=== PATIENT | female | born 1960 | race Caucasian/White ===

== ENCOUNTER 2020-01-29 11:17 | Inpatient (IN) ==
[2020-01-30] MEDS: Topiramate 25 MG TABLET PO SCH ×3 (00:38→20:17)
[2020-01-30] MEDS: traZODone 50 MG TABLET PO SCH ×2 (00:38→20:16)
[2020-01-30] MEDS: QUEtiapine Fumarate 100 MG TABLET PO SCH ×2 (00:38→20:17)
[2020-01-30] MEDS: BuPROPion SR (12 HR) 150 MG TABLET PO SCH ×3 (00:38→16:47)
[2020-01-30 05:56] LABS: Basophils % 0.7 %; Eosinophils # 0.1 K/mcL (0.0-0.6); Eosinophils % 1.5 %; Hematocrit 32.5 % (35.3-44.9); Hemoglobin 10.8 g/dL (11.5-15.4); Immature Granulocytes % 1.8 % (0-4); Lymphocytes # 1.1 K/mcL (0.6-4.6); Lymphocytes % 23.7 %; Mean Corpuscular HGB Conc 33.2 g/dL (31.6-35.5); Mean Corpuscular Hemoglobin 32.7 pg (28.0-33.3); Mean Corpuscular Volume 98.5 fL (83.0-100.0); Mean Platelet Volume 9.2 fL (9.4-12.4); Monocytes # 0.6 K/mcL (0.0-1.3); Monocytes % 13.5 %; Neutrophils # 2.7 K/mcL (1.6-8.9); Platelet Count 105 K/mcL (140-400); Red Cell Distribution Width 12.7 % (11.5-14.5); Segmented Neutrophils % 58.8 %; White Blood Count 4.5 K/mcL (4.3-11.1)
[2020-01-30] MEDS: *HR* OxyCODONE Immed Rel 5 MG TABLET PO PRN ×3 (06:11→22:21)
[2020-01-30 06:18] LABS: BUN/Creatinine Ratio 11 (6-26); Blood Urea Nitrogen 10 mg/dL (6-20); Calcium 9.4 mg/dL (8.6-10.3); Carbon Dioxide 24 mEq/L (23-29); Chloride 107 mEq/L (98-107); Glucose 86 mg/dL (70-105); Osmolality,Calculated 282 (280-300); Potassium 3.8 mEq/L (3.5-5.1); Sodium 137 mEq/L (136-145); eGFR For African Americans > 60 (> 60); eGFR For Non-African Americans > 60 (> 60)
[2020-01-30 06:51] LABS: INR 1.5; Prothrombin Time 17.3 Seconds (9.4-12.1)
[2020-01-30] MEDS: FLUoxetine 20 MG CAPSULE PO SCH (08:38)
[2020-01-30] MEDS: Cholecalciferol (D-3) 1,000 UNIT (25MCG) TABLET PO SCH (08:39)
[2020-01-30] MEDS: Potassium Citrate 10 MEQ TABLET.ER PO SCH ×2 (08:39→16:47)
[2020-01-30] MEDS: Aspirin Enteric Coated 81 MG Tablet PO SCH (08:39)
[2020-01-30] MEDS ORDERED: Bisacodyl 10 MG RECTAL SUPPOSITORY RC PRN (10:17)
[2020-01-30] MEDS: *HR* Warfarin 5 MG TABLET PO SCH (16:47)
[2020-01-30] MEDS: Sennosides/Docusate Sodium TABLET PO SCH (20:17)
[2020-01-31 05:26] LABS: Hemoglobin 10.8 g/dL (11.5-15.4); Mean Corpuscular HGB Conc 32.7 g/dL (31.6-35.5); Mean Corpuscular Volume 97.9 fL (83.0-100.0); Mean Platelet Volume 9.1 fL (9.4-12.4); Platelet Count 120 K/mcL (140-400); Red Blood Count 3.37 M/mcL (3.82-4.97); Red Cell Distribution Width 12.6 % (11.5-14.5); White Blood Count 3.9 K/mcL (4.3-11.1)
[2020-01-31 05:27] LABS: INR 1.9
[2020-01-31 05:42] LABS: Alanine Aminotransferase 16 Units/L (7-52); Albumin 3.1 g/dL (3.5-5.7); Albumin/Globulin Ratio 1.2 (1.1-2.2); Alkaline Phosphatase 58 Units/L (34-104); Aspartate Amino Transferase 20 Units/L (13-39); BUN/Creatinine Ratio 11 (6-26); Bilirubin,Total 0.6 mg/dL (0.3-1.0); Blood Urea Nitrogen 10 mg/dL (6-20); Calcium 9.7 mg/dL (8.6-10.3); Carbon Dioxide 23 mEq/L (23-29); Chloride 109 mEq/L (98-107); Globulin 2.5 g/dL (2.4-3.5); Glucose 91 mg/dL (70-105); Magnesium 1.9 mg/dL (1.6-2.6); Osmolality,Calculated 285 (280-300); Potassium 4.1 mEq/L (3.5-5.1); Sodium 138 mEq/L (136-145); Total Protein 5.6 g/dL (6.4-8.9); eGFR For African Americans > 60 (> 60); eGFR For Non-African Americans > 60 (> 60)
[2020-01-31] MEDS: *HR* OxyCODONE Immed Rel 5 MG TABLET PO PRN ×2 (05:55→16:21)
[2020-01-31] MEDS: Potassium Citrate 10 MEQ TABLET.ER PO SCH ×2 (10:01→17:40)
[2020-01-31] MEDS: Sennosides/Docusate Sodium TABLET PO SCH ×2 (10:01→19:29)
[2020-01-31] MEDS: FLUoxetine 20 MG CAPSULE PO SCH (10:01)
[2020-01-31] MEDS: Aspirin Enteric Coated 81 MG Tablet PO SCH (10:01)
[2020-01-31] MEDS: Cholecalciferol (D-3) 1,000 UNIT (25MCG) TABLET PO SCH (10:01)
[2020-01-31] MEDS: Topiramate 25 MG TABLET PO SCH ×2 (10:01→19:30)
[2020-01-31] MEDS: BuPROPion SR (12 HR) 150 MG TABLET PO SCH ×2 (10:02→17:40)
[2020-01-31] MEDS: tiZANidine 4 MG TABLET PO PRN ×2 (13:06→19:29)
[2020-01-31] MEDS: *HR* Warfarin 5 MG TABLET PO SCH (17:40)
[2020-01-31] MEDS: traZODone 50 MG TABLET PO SCH (19:28)
[2020-01-31] MEDS: QUEtiapine Fumarate 100 MG TABLET PO SCH (19:30)
[2020-02-01] MEDS: *HR* OxyCODONE Immed Rel 5 MG TABLET PO PRN ×2 (04:46→16:55)
[2020-02-01 04:56] LABS: INR 4.1
[2020-02-01 05:00] LABS: Prothrombin Time 44.9 Seconds (9.4-12.1)
[2020-02-01] MEDS: Aspirin Enteric Coated 81 MG Tablet PO SCH (09:48)
[2020-02-01] MEDS: Topiramate 25 MG TABLET PO SCH ×2 (09:48→19:54)
[2020-02-01] MEDS: BuPROPion SR (12 HR) 150 MG TABLET PO SCH ×2 (09:48→16:51)
[2020-02-01] MEDS: Cholecalciferol (D-3) 1,000 UNIT (25MCG) TABLET PO SCH (09:48)
[2020-02-01] MEDS: Potassium Citrate 10 MEQ TABLET.ER PO SCH ×2 (09:49→16:51)
[2020-02-01] MEDS: Sennosides/Docusate Sodium TABLET PO SCH ×2 (09:49→19:45)
[2020-02-01] MEDS: FLUoxetine 20 MG CAPSULE PO SCH (09:49)
[2020-02-01] MEDS: tiZANidine 4 MG TABLET PO PRN ×2 (13:16→19:54)
[2020-02-01] MEDS ORDERED: Warfarin perPT PO PRN (18:00)
[2020-02-01] MEDS ORDERED: *HR* Warfarin 2.5 MG TABLET PO SCH (18:00)
[2020-02-01] MEDS: QUEtiapine Fumarate 100 MG TABLET PO SCH (19:54)
[2020-02-01] MEDS: traZODone 50 MG TABLET PO SCH (19:54)
[2020-02-02] MEDS: *HR* OxyCODONE Immed Rel 5 MG TABLET PO PRN ×2 (05:48→19:59)
[2020-02-02 07:01] LABS: INR 5.5; Prothrombin Time 59.8 Seconds (9.4-12.1)
[2020-02-02] MEDS: Aspirin Enteric Coated 81 MG Tablet PO SCH (07:51)
[2020-02-02] MEDS: Topiramate 25 MG TABLET PO SCH ×2 (07:51→19:58)
[2020-02-02] MEDS: Cholecalciferol (D-3) 1,000 UNIT (25MCG) TABLET PO SCH (07:51)
[2020-02-02] MEDS: Sennosides/Docusate Sodium TABLET PO SCH ×2 (07:52→19:58)
[2020-02-02] MEDS: Potassium Citrate 10 MEQ TABLET.ER PO SCH ×2 (07:52→16:48)
[2020-02-02] MEDS: FLUoxetine 20 MG CAPSULE PO SCH (07:52)
[2020-02-02] MEDS: BuPROPion SR (12 HR) 150 MG TABLET PO SCH ×2 (07:53→16:48)
[2020-02-02] MEDS: tiZANidine 4 MG TABLET PO PRN ×2 (10:54→16:53)
[2020-02-02] MEDS: traZODone 50 MG TABLET PO SCH (19:55)
[2020-02-02] MEDS: QUEtiapine Fumarate 100 MG TABLET PO SCH (19:55)
[2020-02-02] MEDS ORDERED: NON-FORMULARY MEDICATION 1 EACH EACH (Alendronate Sodium [Fosamax] 70 MG) PO SCH (23:39)
[2020-02-03 05:00] LABS: Hematocrit 33.9 % (35.3-44.9); Hemoglobin 11.4 g/dL (11.5-15.4); Mean Corpuscular HGB Conc 33.6 g/dL (31.6-35.5); Mean Corpuscular Hemoglobin 32.5 pg (28.0-33.3); Mean Corpuscular Volume 96.6 fL (83.0-100.0); Red Blood Count 3.51 M/mcL (3.82-4.97); Red Cell Distribution Width 12.6 % (11.5-14.5); White Blood Count 4.7 K/mcL (4.3-11.1)
[2020-02-03 05:10] LABS: INR 2.7; Prothrombin Time 30.3 Seconds (9.4-12.1)
[2020-02-03 05:13] LABS: Platelet Count 181 K/mcL (140-400)
[2020-02-03 05:20] LABS: Alanine Aminotransferase 17 Units/L (7-52); Albumin 3.3 g/dL (3.5-5.7); Albumin/Globulin Ratio 1.3 (1.1-2.2); Alkaline Phosphatase 79 Units/L (34-104); Aspartate Amino Transferase 19 Units/L (13-39); BUN/Creatinine Ratio 13 (6-26); Bilirubin,Total 0.6 mg/dL (0.3-1.0); Blood Urea Nitrogen 12 mg/dL (6-20); Carbon Dioxide 20 mEq/L (23-29); Chloride 107 mEq/L (98-107); Globulin 2.6 g/dL (2.4-3.5); Glucose 93 mg/dL (70-105); Magnesium 1.8 mg/dL (1.6-2.6); Osmolality,Calculated 283 (280-300); Potassium 3.6 mEq/L (3.5-5.1); Sodium 137 mEq/L (136-145); Total Protein 5.9 g/dL (6.4-8.9); eGFR For African Americans > 60 (> 60); eGFR For Non-African Americans > 60 (> 60)
[2020-02-03] MEDS: Aspirin Enteric Coated 81 MG Tablet PO SCH (12:11)
[2020-02-03] MEDS: Cholecalciferol (D-3) 1,000 UNIT (25MCG) TABLET PO SCH (12:12)
[2020-02-03] MEDS: Sennosides/Docusate Sodium TABLET PO SCH ×2 (12:12→21:02)
[2020-02-03] MEDS: Potassium Citrate 10 MEQ TABLET.ER PO SCH ×2 (12:12→19:55)
[2020-02-03] MEDS: FLUoxetine 20 MG CAPSULE PO SCH (12:12)
[2020-02-03] MEDS: BuPROPion SR (12 HR) 150 MG TABLET PO SCH ×2 (12:12→19:55)
[2020-02-03] MEDS: Topiramate 25 MG TABLET PO SCH ×2 (12:12→21:02)
[2020-02-03] MEDS ORDERED: *HR* Warfarin 2.5 MG TABLET PO ONE ×2 (18:00→19:50)
[2020-02-03] MEDS: traZODone 50 MG TABLET PO SCH (21:02)
[2020-02-03] MEDS: QUEtiapine Fumarate 100 MG TABLET PO SCH (21:02)
[2020-02-04 05:12] LABS: INR 2.4
[2020-02-04] MEDS: Cholecalciferol (D-3) 1,000 UNIT (25MCG) TABLET PO SCH (08:00)
[2020-02-04] MEDS: Sennosides/Docusate Sodium TABLET PO SCH ×2 (08:00→21:46)
[2020-02-04] MEDS: Aspirin Enteric Coated 81 MG Tablet PO SCH (08:01)
[2020-02-04] MEDS: Potassium Citrate 10 MEQ TABLET.ER PO SCH ×2 (08:01→17:33)
[2020-02-04] MEDS: BuPROPion SR (12 HR) 150 MG TABLET PO SCH ×2 (08:01→17:34)
[2020-02-04] MEDS: FLUoxetine 20 MG CAPSULE PO SCH (08:02)
[2020-02-04] MEDS: Topiramate 25 MG TABLET PO SCH ×2 (08:02→21:45)
[2020-02-04] MEDS ORDERED: *HR* Warfarin 1 MG TABLET PO ONE (18:00)
[2020-02-04] MEDS: traZODone 50 MG TABLET PO SCH (21:41)
[2020-02-04] MEDS: QUEtiapine Fumarate 100 MG TABLET PO SCH (21:42)
[2020-02-04] MEDS: tiZANidine 4 MG TABLET PO PRN (21:45)
[2020-02-05 06:26] LABS: INR 1.9; Prothrombin Time 21.6 Seconds (9.4-12.1)
[2020-02-05] MEDS: Sennosides/Docusate Sodium TABLET PO SCH ×2 (12:39→21:35)
[2020-02-05] MEDS: Potassium Citrate 10 MEQ TABLET.ER PO SCH ×2 (12:39→17:33)
[2020-02-05] MEDS: Aspirin Enteric Coated 81 MG Tablet PO SCH (12:39)
[2020-02-05] MEDS: BuPROPion SR (12 HR) 150 MG TABLET PO SCH ×2 (12:39→17:32)
[2020-02-05] MEDS: Topiramate 25 MG TABLET PO SCH ×2 (12:40→21:35)
[2020-02-05] MEDS: FLUoxetine 20 MG CAPSULE PO SCH (12:40)
[2020-02-05] MEDS: Cholecalciferol (D-3) 1,000 UNIT (25MCG) TABLET PO SCH (12:40)
[2020-02-05] MEDS ORDERED: *HR* Warfarin 5 MG TABLET PO ONE (18:00)
[2020-02-05] MEDS: traZODone 50 MG TABLET PO SCH (21:35)
[2020-02-05] MEDS: QUEtiapine Fumarate 100 MG TABLET PO SCH (21:35)
[2020-02-06 06:06] LABS: Basophils # 0.1 K/mcL (0.0-0.2); Basophils % 1.1 %; Eosinophils # 0.1 K/mcL (0.0-0.6); Hematocrit 36.8 % (35.3-44.9); Hemoglobin 12.4 g/dL (11.5-15.4); Immature Granulocytes % 3.3 % (0-4); Lymphocytes # 1.3 K/mcL (0.6-4.6); Lymphocytes % 28.4 %; Mean Corpuscular HGB Conc 33.7 g/dL (31.6-35.5); Mean Corpuscular Hemoglobin 32.3 pg (28.0-33.3); Mean Corpuscular Volume 95.8 fL (83.0-100.0); Mean Platelet Volume 8.7 fL (9.4-12.4); Monocytes # 0.6 K/mcL (0.0-1.3); Neutrophils # 2.3 K/mcL (1.6-8.9); Platelet Count 241 K/mcL (140-400); Red Blood Count 3.84 M/mcL (3.82-4.97); Red Cell Distribution Width 12.8 % (11.5-14.5); Segmented Neutrophils % 51.2 %; White Blood Count 4.6 K/mcL (4.3-11.1)
[2020-02-06 06:09] LABS: INR 1.7; Prothrombin Time 19.1 Seconds (9.4-12.1)
[2020-02-06 06:25] LABS: BUN/Creatinine Ratio 19 (6-26); Blood Urea Nitrogen 16 mg/dL (6-20); Calcium 9.3 mg/dL (8.6-10.3); Carbon Dioxide 24 mEq/L (23-29); Chloride 106 mEq/L (98-107); Glucose 77 mg/dL (70-105); Osmolality,Calculated 286 (280-300); Potassium 3.6 mEq/L (3.5-5.1); Sodium 138 mEq/L (136-145); eGFR For African Americans > 60 (> 60); eGFR For Non-African Americans > 60 (> 60)
[2020-02-06 07:52] VITALS: BP 113/76
[2020-02-06] MEDS: Sennosides/Docusate Sodium TABLET PO SCH (08:15)
[2020-02-06] MEDS: Potassium Citrate 10 MEQ TABLET.ER PO SCH (08:15)
[2020-02-06] MEDS: FLUoxetine 20 MG CAPSULE PO SCH (08:16)
[2020-02-06] MEDS: Cholecalciferol (D-3) 1,000 UNIT (25MCG) TABLET PO SCH (08:16)
[2020-02-06] MEDS: Aspirin Enteric Coated 81 MG Tablet PO SCH (08:16)
[2020-02-06] MEDS: Topiramate 25 MG TABLET PO SCH (08:16)
[2020-02-06] MEDS: BuPROPion SR (12 HR) 150 MG TABLET PO SCH (08:17)
[2020-02-06] MEDS ORDERED: *HR* Warfarin 5 MG TABLET PO ONE (18:00)
== END 2020-02-06 11:00 | disposition home health service (06) | DRG 560 ==
LOC: INPGRE 23:07
PROVIDERS: ADMIT Family Medicine; ATTEND Family Medicine